=== PATIENT | female | born 1965 | race Caucasian/White ===

== ENCOUNTER 2017-02-08 19:59 | Emergency (ER) | payer MEDICAID ==
[~2017-02-08] VITALS: Ht 180.3 cm; Wt 102.5 kg
[2017-02-08 20:01] VITALS: BP 143/83
[2017-02-08 20:38] LABS: HEMATOCRIT 40.7 % (34.6-47.8); HEMOGLOBIN 13.3 g/dL (11.7-16.4); WHITE BLOOD COUNT 7.6 x10^3/uL (3.4-10)
[2017-02-08 20:48] LABS: ASPARTATE AMINO TRANSFERASE 22 U/L (15-37); BLOOD UREA NITROGEN 13 mg/dL (7-18)
== END 2017-02-08 22:44 | disposition home or self-care (01) ==
LOC: ED 21:48
DX: R10.2 Pelvic and perineal pain (principal); R10.31 Right lower quadrant pain
CPT/HCPCS: 36415; 76830; 80053; 81003; 85025; 99285

== ENCOUNTER 2017-12-05 05:43 | Inpatient (IN) | payer MEDICAID ==
[~2017-12-05] VITALS: Ht 180.3 cm; Wt 113.0 kg
[2017-12-05] MEDS ORDERED: ONDANSETRON 2MG/ML, 2ML IVPush ONE ×3 (06:00→10:30)
[2017-12-05] MEDS ORDERED: ONDANSETRON 2MG/ML, 2ML ONE ×3 (06:13→12:34)
[2017-12-05 06:21] LABS: BASOPHILS # (AUTO) 0.02 x10^3/uL (0-0.1); BASOPHILS % (AUTO) 0 % (0-1); EOSINOPHILS # (AUTO) 0.03 x10^3/uL (0-0.4); EOSINOPHILS % (AUTO) 0 % (1-7); LYMPHOCYTES # (AUTO) 1.01 x10^3/uL (1-3.4); LYMPHOCYTES % (AUTO) 10 % (22-44); MD NO; MEAN CORPUSCULAR HEMOGLOBIN 26.6 pg (27.0-34.8); MEAN CORPUSCULAR HGB CONC 32.4 g/dL (32.4-35.8); MEAN CORPUSCULAR VOLUME 82.1 fL (80-100); MEAN PLATELET VOLUME 8.4 fL (7.4-10.4); MONOCYTES % (AUTO) 5 % (2-9); NEUTROPHILS % (AUTO) 85 % (42-75); PLATELET COUNT 240 x10^3/uL (130-400); RED BLOOD COUNT 4.53 x10^6/uL (3.82-5.3); RED CELL DISTRIBUTION WIDTH 14.6 % (9.6-15.2)
[2017-12-05 06:35] LABS: ANION GAP 7 mmol/L (5-15); CALCIUM 8.9 mg/dL (8.5-10.1); CHLORIDE 107 mmol/L (98-107)
[2017-12-05 06:39] LABS: ALANINE AMINOTRANSFERASE 14 U/L (12-78); ALKALINE PHOSPHATASE 100 U/L (45-117); BILIRUBIN,TOTAL 0.5 mg/dL (0.2-1.0); CREATININE 0.66 mg/dL (0.55-1.02); TOTAL PROTEIN 7.9 g/dL (6.4-8.2)
[2017-12-05] MEDS ORDERED: OMNIPAQUE 350 MG/ML, 150 ML BOTTLE ONE (06:57)
[2017-12-05] MEDS ORDERED: IBUP-1222 PO (07:08)
[2017-12-05] MEDS ORDERED: QUET100T4 PO (07:08)
[2017-12-05] MEDS ORDERED: BUSP5TAB2 PO (07:08)
[2017-12-05] MEDS ORDERED: QUET300T5 PO (07:08)
[2017-12-05] MEDS ORDERED: SERT100T PO (07:08)
[2017-12-05 07:16] LABS: CULTURE INDICATED? NO; MICROSCOPIC NOT IND
[2017-12-05] MEDS ORDERED: CEFOTETAN PMX 1GM/50ML 50 ML ONE (07:25)
[2017-12-05] MEDS ORDERED: CEFOTETAN PMX 1GM/50ML 50 ML IV ONE (07:30)
[2017-12-05] MEDS ORDERED: SODIUM CHLORIDE 0.9% 1,000ML IVBOLUS ONE (08:00)
[2017-12-05 09:20] VITALS: BP 130/78
[2017-12-05] MEDS: FENTANYL PF 100 MCG/2ML IVPush PRN ×3 (10:10→13:48)
[2017-12-05] MEDS ORDERED: BUPIVACAINE/PF-EPI 0.5% 1:200K ONE (11:35)
[2017-12-05] MEDS ORDERED: MIDAZOLAM 1 MG/ML, 2ML ONE (12:00)
[2017-12-05] MEDS ORDERED: FENTANYL PF 250 MCG/5ML ONE (12:00)
[2017-12-05] MEDS ORDERED: MIDAZOLAM 1 MG/ML, 2ML IV PRN (12:30)
[2017-12-05] MEDS ORDERED: PROMETHAZINE 25 MG SUPP PR PRN (12:30)
[2017-12-05] MEDS ORDERED: EPHEDRINE 50 MG/ML, 1ML IM PRN (12:30)
[2017-12-05] MEDS ORDERED: OXYcodone 5 MG/5 ML ORAL.SOL UDC PO PRN (12:30)
[2017-12-05] MEDS ORDERED: FENTANYL PF 100 MCG/2ML IV PRN (12:30)
[2017-12-05] MEDS ORDERED: DIPHENHYDRAMINE 50 MG/ML, 1ML IVPush PRN ×3 (12:30→13:00)
[2017-12-05] MEDS ORDERED: MORPHINE SULFATE 4 MG/ML, 1ML IVPush PRN (12:30)
[2017-12-05] MEDS ORDERED: MEPERIDINE/PF 25MG/0.5ML IVPush PRN (12:30)
[2017-12-05] MEDS ORDERED: PROCHLORPERAZINE 5 MG/ML, 2ML IV PRN (12:30)
[2017-12-05] MEDS ORDERED: ONDANSETRON ODT 8 MG PO PRN (12:30)
[2017-12-05] MEDS ORDERED: PROMETHAZINE 25 MG/ML, 1ML IV PRN (12:30)
[2017-12-05] MEDS ORDERED: PROPOFOL 10 MG/ML, 20ML ONE (12:33)
[2017-12-05] MEDS ORDERED: SUCCINYLCHOLINE 20 MG/ML, 10ML ONE (12:34)
[2017-12-05] MEDS ORDERED: DEXAMETHASONE 4 MG/ML, 1ML ONE ×2 (12:34)
[2017-12-05] MEDS ORDERED: LACTATED RINGERS 1,000 ML IV SCH (12:45)
[2017-12-05] MEDS ORDERED: ONDANSETRON 2MG/ML, 2ML IVPush PRN (13:00)
[2017-12-05] MEDS ORDERED: QUETIAPINE 100MG TABLET PO PRN (13:00)
[2017-12-05] MEDS ORDERED: FENTANYL PF 100 MCG/2ML IVPush PRN (13:00)
[2017-12-05] MEDS ORDERED: CALCIUM CARBONATE 500 MG TAB.CHEW PO PRN (13:00)
[2017-12-05] MEDS ORDERED: ACETAMINOPHEN 650 MG/20.3 ML UDC ONE (13:06)
[2017-12-05] MEDS ORDERED: OXYcodone 5 MG/5 ML ORAL.SOL UDC ONE (13:07)
[2017-12-05] MEDS ORDERED: FENTANYL PF 100 MCG/2ML ONE (13:07)
[2017-12-05] MEDS: KETOROLAC 30 MG/1 ML IVPush SCH ×2 (15:24→21:37)
[2017-12-05] MEDS: CEFEPIME 2 GM in DEXTROSE 5% 50 ML IVPB SCH (15:46)
[2017-12-05] MEDS: ACETAMINOPHEN 325 MG TABLET PO SCH ×2 (15:46→21:37)
[2017-12-05] MEDS: BUSPIRONE 5 MG TABLET PO SCH ×2 (15:56→20:19)
[2017-12-05] MEDS: OXYcodone IR 5MG TABLET PO PRN ×3 (17:08→23:21)
[2017-12-05 19:46] VITALS: BP 108/71
[2017-12-06 00:15] VITALS: BP 127/70
[2017-12-06] MEDS: KETOROLAC 30 MG/1 ML IVPush SCH ×4 (03:58→21:14)
[2017-12-06] MEDS: CEFEPIME 2 GM in DEXTROSE 5% 50 ML IVPB SCH ×2 (03:59→15:22)
[2017-12-06] MEDS: ACETAMINOPHEN 325 MG TABLET PO SCH ×4 (03:59→21:14)
[2017-12-06 04:16] VITALS: BP 122/71
[2017-12-06 05:57] LABS: BASOPHILS # (AUTO) 0.01 x10^3/uL (0-0.1); BASOPHILS % (AUTO) 0 % (0-1); EOSINOPHILS % (AUTO) 0 % (1-7); LYMPHOCYTES # (AUTO) 0.86 x10^3/uL (1-3.4); LYMPHOCYTES % (AUTO) 7 % (22-44); MD NO; MEAN CORPUSCULAR HEMOGLOBIN 26.7 pg (27.0-34.8); MEAN CORPUSCULAR HGB CONC 32.3 g/dL (32.4-35.8); MEAN CORPUSCULAR VOLUME 82.7 fL (80-100); MEAN PLATELET VOLUME 8.7 fL (7.4-10.4); MONOCYTES # (AUTO) 0.77 x10^3/uL (0.2-0.8); MONOCYTES % (AUTO) 6 % (2-9); NEUTROPHILS # (AUTO) 10.77 x10^3/uL (1.8-6.8); NEUTROPHILS % (AUTO) 87 % (42-75); PLATELET COUNT 206 x10^3/uL (130-400); RED BLOOD COUNT 4.06 x10^6/uL (3.82-5.3); RED CELL DISTRIBUTION WIDTH 14.4 % (9.6-15.2)
[2017-12-06 06:52] VITALS: BP 108/65
[2017-12-06] MEDS: BUSPIRONE 5 MG TABLET PO SCH ×3 (08:04→21:14)
[2017-12-06] MEDS: OXYcodone IR 5MG TABLET PO PRN (08:04)
[2017-12-06] MEDS: SERTRALINE 100MG TABLET PO SCH (08:04)
[2017-12-06 12:43] VITALS: BP 106/62
[2017-12-06 19:40] VITALS: BP 117/72
[2017-12-07 02:05] VITALS: BP 117/69
[2017-12-07] MEDS: ACETAMINOPHEN 325 MG TABLET PO SCH ×2 (03:50→09:26)
[2017-12-07] MEDS: KETOROLAC 30 MG/1 ML IVPush SCH ×2 (03:50→09:26)
[2017-12-07] MEDS: CEFEPIME 2 GM in DEXTROSE 5% 50 ML IVPB SCH (03:51)
[2017-12-07] MEDS: OXYcodone IR 5MG TABLET PO PRN (04:07)
[2017-12-07 05:25] LABS: BASOPHILS % (AUTO) 0 % (0-1); EOSINOPHILS # (AUTO) 0.02 x10^3/uL (0-0.4); EOSINOPHILS % (AUTO) 0 % (1-7); LYMPHOCYTES # (AUTO) 0.76 x10^3/uL (1-3.4); LYMPHOCYTES % (AUTO) 8 % (22-44); MD NO; MEAN CORPUSCULAR HEMOGLOBIN 27.1 pg (27.0-34.8); MEAN CORPUSCULAR HGB CONC 32.6 g/dL (32.4-35.8); MEAN CORPUSCULAR VOLUME 83.1 fL (80-100); MEAN PLATELET VOLUME 9.2 fL (7.4-10.4); MONOCYTES # (AUTO) 0.65 x10^3/uL (0.2-0.8); MONOCYTES % (AUTO) 7 % (2-9); NEUTROPHILS % (AUTO) 85 % (42-75); PLATELET COUNT 165 x10^3/uL (130-400); RED BLOOD COUNT 3.67 x10^6/uL (3.82-5.3); RED CELL DISTRIBUTION WIDTH 14.6 % (9.6-15.2)
[2017-12-07 08:30] VITALS: BP 115/55
[2017-12-07] MEDS: BUSPIRONE 5 MG TABLET PO SCH (09:26)
[2017-12-07] MEDS: SERTRALINE 100MG TABLET PO SCH (09:26)
[2017-12-07] MEDS ORDERED: OXYC5CAP2 PO (13:37)
[2017-12-07] MEDS ORDERED: AMOX1TAB61 PO (13:37)
== END 2017-12-07 14:10 | disposition home or self-care (01) | DRG 340 ==
LOC: ED 05:57 → EDIP 07:44 → 4NOR 14:26 → DCLOUNGE 12-07 14:00
PROVIDERS: ADMIT Surgery; ATTEND Surgery
PROC: 0DTJ4ZZ Resection of Appendix, Percutaneous Endoscopic Approach (ICD-10-PCS; principal; 2017-12-05 12:00)
DX: K35.3 Acute appendicitis with localized peritonitis (principal); Z86.19 Personal history of other infectious and parasitic diseases; F32.9 Major depressive disorder, single episode, unspecified
CPT/HCPCS: 36415; 74177; 80053; 81003; 83690; 85025; 88304; 96365; 96375; 96376; 99285; J1100; J1885; J2250; J2405; J2704; J3010; Q9967; J0330; J7030; J7120; S0074

== ENCOUNTER 2018-04-03 18:30 | Emergency (ER) | payer MEDICAID ==
[~2018-04-03] VITALS: Ht 180.3 cm; Wt 115.0 kg
[~2018-04-03 18:30] MED LIST: AMOX1TAB61 PO; BUSP5TAB2 PO; IBUP-1222 PO; OXYC5CAP2 PO; QUET100T4 PO; QUET300T5 PO; SERT100T PO
[2018-04-03 18:39] VITALS: BP 132/64
== END 2018-04-03 19:33 | disposition home or self-care (01) ==
LOC: ED 19:21
DX: M54.42 Lumbago with sciatica, left side (principal); F32.9 Major depressive disorder, single episode, unspecified; Z87.891 Personal history of nicotine dependence
CPT/HCPCS: 72110; 99284; J7512

== ENCOUNTER 2019-12-06 15:03 | Emergency (ER) | payer MEDICARE, MEDICAID ==
[~2019-12-06] VITALS: Ht 180.3 cm; Wt 120.1 kg
[2019-12-06 15:05] VITALS: BP 149/76
[2019-12-06 16:04] LABS: ALBUMIN 3.9 g/dL (3.4-5.0); ANION GAP 5 mmol/L (5-15); CALCIUM 8.9 mg/dL (8.5-10.1); CHLORIDE 113 mmol/L (98-107)
[2019-12-06 16:05] LABS: CREATININE 0.66 mg/dL (0.55-1.02)
[2019-12-06 16:13] LABS: BASOPHILS # (AUTO) 0.02 x10^3/uL (0-0.1); BASOPHILS % (AUTO) 0 % (0-1); EOSINOPHILS # (AUTO) 0.09 x10^3/uL (0-0.4); EOSINOPHILS % (AUTO) 2 % (1-7); LYMPHOCYTES # (AUTO) 1.74 x10^3/uL (1-3.4); LYMPHOCYTES % (AUTO) 28 % (22-44); MD NO; MEAN CORPUSCULAR HEMOGLOBIN 27.8 pg (27.0-34.8); MEAN CORPUSCULAR HGB CONC 32.3 g/dL (32.4-35.8); MEAN CORPUSCULAR VOLUME 86.2 fL (80-100); MEAN PLATELET VOLUME 8.9 fL (7.4-10.4); MONOCYTES # (AUTO) 0.35 x10^3/uL (0.2-0.8); MONOCYTES % (AUTO) 6 % (2-9); NEUTROPHILS # (AUTO) 4.13 x10^3/uL (1.8-6.8); NEUTROPHILS % (AUTO) 65 % (42-75); PLATELET COUNT 223 x10^3/uL (130-400); RED BLOOD COUNT 4.21 x10^6/uL (3.82-5.3); RED CELL DISTRIBUTION WIDTH 13.9 % (9.6-15.2)
== END 2019-12-06 19:51 | disposition home or self-care (01) ==
LOC: ED 16:49
DX: M79.661 Pain in right lower leg (principal); Z87.891 Personal history of nicotine dependence
CPT/HCPCS: 36415; 80048; 82040; 85025; 99284

== ENCOUNTER 2020-04-19 15:58 | Emergency (ER) | payer MEDICARE, MEDICAID ==
[~2020-04-19] VITALS: Ht 180.3 cm; Wt 124.9 kg
--- NOTE | 2020-04-19 17:05 | NUR ---
PT BROUGHT BACK FROM LOBBY WITH CHIEF COMPLAINT OF LOW BACK PAIN AND BILAT LEG PAIN FOR FEW MONTHS. PT EVALUATED HERE FOR SAME COMPLAINT, AND FOLLOWED UP WITH PCP AT [facility] HOWEVER WORSENING PAIN.
--- NOTE | 2020-04-19 17:18 | NUR ---
ORLANDO SAHM AT BEDSIDE FOR EVALUATION.
[2020-04-19] MEDS ORDERED: METHOCARBAMOL 750 MG TABLET PO ONE (17:30)
[2020-04-19] MEDS ORDERED: KETOROLAC 30 MG/1 ML IM ONE (17:30)
[2020-04-19] MEDS ORDERED: KETOROLAC 60 MG/2 ML ONE (17:31)
[2020-04-19] MEDS ORDERED: METHOCARBAMOL 750 MG TABLET ONE (17:31)
--- NOTE | 2020-04-19 17:41 | NUR ---
Took report from Stefany EASTMAN assume care at this time.
[2020-04-19 18:25] VITALS: BP 124/74
== END 2020-04-19 18:29 | disposition home or self-care (01) ==
LOC: ED 18:00
DX: M51.16 Intervertebral disc disorders with radiculopathy, lumbar region (principal); G89.29 Other chronic pain
CPT/HCPCS: 96372; 99283; J1885; J7512